=== PATIENT | male | born 1970 | race African-American/Black ===

== ENCOUNTER 2024-09-28 09:54 | Emergency (ER) | payer SELFPAY ==
[2024-09-28 10:39] VITALS: TEMP 98.5; BMI 34.8
[2024-09-28] MEDS ORDERED: ALBUTEROL SO4 2.5/IPRATROPIUM 0.5 INH SOL 3 ML VIAL.NEB. NEB ONE (10:51)
[2024-09-28] MEDS: ALBUTEROL SO4 2.5/IPRATROPIUM 0.5 INH SOL 3 ML VIAL.NEB. NEB SCH (10:54)
[2024-09-28] MEDS ORDERED: ALBUTEROL SO4 HFA INHALER IH ONE (11:04)
[2024-09-28] MEDS: ALBUTEROL SO4 HFA INHALER IH ONE (11:05)
[2024-09-28 12:15] VITALS: BP 152/78; PULSE 66; RESP 18
== END 2024-09-28 12:15 | disposition home or self-care (01) ==
LOC: JER 09:54
DX: J44.9 Chronic obstructive pulmonary disease, unspecified (principal); F17.210 Nicotine dependence, cigarettes, uncomplicated; F12.90 Cannabis use, unspecified, uncomplicated; F14.90 Cocaine use, unspecified, uncomplicated; R06.2 Wheezing
CPT/HCPCS: 71045-TC-FY; 93005; 93010; 99284-25